=== PATIENT | male | born 1975 | race Two or more races ===

== ENCOUNTER 2020-08-26 12:08 | Emergency (ER) | payer MEDICAID, MEDICARE ==
[~2020-08-26] VITALS: Ht 177.8 cm; Wt 80.1 kg
--- NOTE | 2020-08-26 12:26 | NUR ---
PT BIB EMS AFTER BEING FOUND DOWN OUTSIDE OF THE [facility]. PER EMS WAS AOX1 ON ARRIVAL AND HAD A FSBG OF 45. EMS GAVE ABOUT 50ML OF D-10 AND WHEN PT ARRIVED HIS SUGAR WAS 83 AND HE WAS AOX4. PT STATES "I DONT REMEMBER ANYTHING. I WAS OUT GAMBLING AND HAVING FUN WITH MY FRIENDS LAST NIGHT AND I WOKE UP ON THE GROUND". PT HAS WHAT APPEARS TO BE A HEMOTOMA ON HIS SCALP WITH A SUPERFICIAL LAC. PT PROVIDED WITH WARM BLANKETS AND BLANKET WARMER. EKG COMPLETE. LABS DRAWN. X RAY COMPLETE. WILL CONTINUE D-10 AT A DRIP PER MD ORDER. PT CONNECTED TO ALL MONITORING EQUIPMENT.
[2020-08-26 12:30] LABS: BASOPHILS % (AUTO) 1 % (0-1); EOSINOPHILS % (AUTO) 1 % (1-7); LYMPHOCYTES % (AUTO) 29 % (22-44); MEAN CORPUSCULAR HEMOGLOBIN 27.5 pg (27.5-34.5); MEAN CORPUSCULAR HGB CONC 33.3 g/dL (33.2-36.2); MONOCYTES % (AUTO) 6 % (2-9); NEUTROPHILS % (AUTO) 64 % (42-75); PLATELET COUNT 229 x10^3/uL (130-400); RED BLOOD COUNT 5.14 x10^6/uL (4.38-5.82); RED CELL DISTRIBUTION WIDTH 16.5 % (9.4-14.8)
[2020-08-26] MEDS ORDERED: SODIUM CHLORIDE FLUSH 10ML SYR IVF ONE (12:30)
[2020-08-26 12:32] LABS: MD NO
[2020-08-26 12:37] LABS: ALANINE AMINOTRANSFERASE 113 U/L (12-78); ANION GAP 11 mmol/L (5-15); CALCIUM 8.5 mg/dL (8.5-10.1); CHLORIDE 105 mmol/L (98-107); CREATININE 1.45 mg/dL (0.7-1.3)
[2020-08-26 12:39] LABS: ALKALINE PHOSPHATASE 132 U/L (45-117); BILIRUBIN,TOTAL 0.8 mg/dL (0.2-1.0); TOTAL PROTEIN 7.6 g/dL (6.4-8.2)
[2020-08-26] MEDS ORDERED: SIMV5TAB14 PO (13:02)
[2020-08-26] MEDS ORDERED: LOSA25TA25 PO (13:02)
[2020-08-26] MEDS ORDERED: METF500T17 PO (13:02)
--- NOTE | 2020-08-26 13:02 | NUR ---
PT RETURNED FROM CT. SPO2 70'S WHILE ASLEEP; EVEN/SHALLOW RESPIRATIONS. PT ARROUSABLE TO VOICE AND PHYSICAL STIM. ONCE ARROUSED, PT TAKES DEEP RESPIRATIONS. PLACED ON 2L BY NC FOR SUPPORT. IMPROVED SPO2. PT NOW A&OX3, CANNOT RECAL EVENTS PRIOR TO EMS ARRIVAL. 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 FSBS RECHECK 118. COUSIN AT BEDSIDE.
--- NOTE | 2020-08-26 13:17 | NUR ---
REPORT TO BRE MCGRATH. PT TRANSFERED TO ROOM 16. AWAKE/ALERT, SPEAKING COHERENTLY TO COUSIN WHO IS AT BEDSIDE. BP/SPO2/ECG MONITORING IN PLACE. HYPERTENSIVE ON MONITOR. ERP AWARE.
[2020-08-26] MEDS ORDERED: LOSARTAN 50MG TABLET PO ONE (13:30)
--- NOTE | 2020-08-26 14:02 | NUR ---
Report from Kymberly DÍAZ. Pt resting in bed, BRANDY, denies needs. POC discussed with pt. Pt provided meal tray and assisted with setup.
--- NOTE | 2020-08-26 14:11 | NUR ---
Pt continues eating with family at bedside. Administed med per MAR.
--- NOTE | 2020-08-26 14:56 | NUR ---
Pt ate all of food. Pt ambulatory to bathroom with steady gait.
--- NOTE | 2020-08-26 15:07 | NUR ---
Pt ambulatory back to bed without difficulty. Pt able to position self for comfort in bed, denies other needs.
[2020-08-26 15:30] LABS: AMPHETAMINE SCREEN, URINE Positive (Negative); BARBITURATE SCREEN, URINE Negative (Negative); BENZODIAZEPINE SCREEN, URINE Negative (Negative); CANNABINOID SCREEN, URINE Negative (Negative); COCAINE SCREEN, URINE Positive (Negative); METHADONE SCREEN, URINE Negative (Negative); OPIATE SCREEN, URINE Negative (Negative)
[2020-08-26 15:40] VITALS: BP 154/108
== END 2020-08-26 16:04 | disposition home or self-care (01) ==
LOC: ED 14:25
DX: S00.91XA Abrasion of unspecified part of head, initial encounter (principal); S09.90XA Unspecified injury of head, initial encounter; R41.82 Altered mental status, unspecified; E11.649 Type 2 diabetes mellitus with hypoglycemia without coma; I10 Essential (primary) hypertension; F15.10 Other stimulant abuse, uncomplicated; F14.10 Cocaine abuse, uncomplicated; R55 Syncope and collapse; R94.31 Abnormal electrocardiogram [ECG] [EKG]; R06.89 Other abnormalities of breathing; Z86.73 Personal history of transient ischemic attack (TIA), and cerebral infarction without residual deficits; X58.XXXA Exposure to other specified factors, initial encounter; Y93.89 Activity, other specified; Y92.410 Unspecified street and highway as the place of occurrence of the external cause; Y99.8 Other external cause status
CPT/HCPCS: 36415; 70450; 71045; 80053; 80307; 80320; 82962; 85025; 93005; 99285; G0480